=== PATIENT | female | born 1935 | race Caucasian/White ===

== ENCOUNTER 2021-04-25 09:45 | Emergency (ER) | payer OTHER ==
[~2021-04-25 09:45] MED LIST: MEDROL 4MG DOSEP4 MG PO; TAMIFLU 75MG CA75 MG PO
[2021-04-25] MEDS ORDERED: ANTIVERT25 MG PO (10:03)
== END 2021-04-25 18:56 | disposition home or self-care (01) ==
LOC: FER 09:45
DX: R42 Dizziness and giddiness (principal); J32.9 Chronic sinusitis, unspecified; I10 Essential (primary) hypertension
CPT/HCPCS: 99283